=== PATIENT | male | born 1970 | race Caucasian/White ===

== ENCOUNTER 2021-02-10 22:15 | Inpatient (IN) | payer MEDICAID, SELFPAY ==
[~2021-02-10] VITALS: Ht 167.6 cm; Wt 65.8 kg
[2021-02-10 22:15] VITALS: BP 102/72
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
--- NOTE | 2021-02-10 22:17 | NUR ---
Pt BAKARI via gurney to bed 10.
[2021-02-10] MEDS ORDERED: NACL 0.9% 2,000 ML IV ONE (23:20)
--- NOTE | 2021-02-10 23:30 | NUR ---
CJ COLLECTED AND HANDED TO MARCELLO FROM LAB
--- NOTE | 2021-02-10 23:40 | NUR ---
JAMIE VALENTIN AT BEDSIDE FOR CENTRAL LINE PLACEMENT
[2021-02-11] MEDS ORDERED: NALOXONE 0.4 MG/ML VIAL IVP ONE (00:15)
[2021-02-11] MEDS ORDERED: NACL 0.9% 1,000 ML IV ONE (00:15)
[2021-02-11 00:36] LABS: BASOPHILS % (AUTO) 0.1 % (0.0-2.0); HEMATOCRIT 23.1 % (36-52); HEMOGLOBIN 7.6 g/dL (12.0-18.0); LYMPHOCYTES # (AUTO) 1.1 K/uL (2.0-11.5); LYMPHOCYTES % (AUTO) 4.3 % (20.5-51.1); MEAN CORPUSCULAR HEMOGLOBIN 27 pg (27-31); MEAN CORPUSCULAR HGB CONC 33 g/dL (33-37); MEAN CORPUSCULAR VOLUME 82.7 fL (80-94); MONOCYTES # (AUTO) 0.9 K/uL (0.8-1.0); MONOCYTES % (AUTO) 3.4 % (1.7-9.3); NEUTROPHILS # (AUTO) 23.5 K/uL (1.8-7.7); NEUTROPHILS % (AUTO) 92.2 % (42.2-75.2); PLATELET COUNT (AUTO) 509 K/uL (140-450); RED BLOOD CELL COUNT(AUTO) 2.79 MIL/uL (4.20-6.10); RED CELL DISTRIBUTION WIDTH 17.2 % (11.6-13.7)
[2021-02-11 00:43] LABS: WHITE BLOOD COUNT (AUTO) 25.5 K/uL (4.8-10.8)
[2021-02-11 00:52] LABS: ALBUMIN 1.1 g/dL (3.4-5.0); ANION GAP 14.1 (8-16); ASPARTATE AMINOTRANSFERASE 32 U/L (15-37); CARBON DIOXIDE 26.1 mmol/L (21-32); CHLORIDE 84 mmol/L (98-107); GFR ARICAN-AMERICAN 16 mL/min (>90); POTASSIUM 4.2 mmol/L (3.5-5.1); SALICYLATE 3.5 mg/dL (2.8-20.0); SODIUM SERUM 120 mmol/L (136-145); TOTAL BILIRUBIN 2.4 mg/dL (0.0-1.0)
[2021-02-11 00:56] LABS: CREATININE 4.9 mg/dL (0.6-1.3); GLUCOSE 481 mg/dL (74-106); UREA NITROGEN, BLOOD 147 mg/dL (7-18)
--- NOTE | 2021-02-11 01:45 | NUR ---
PER JAMIE VALENTIN, NEW ORDER OF DUARTE CATHETER TO BE INSERTED.
--- NOTE | 2021-02-11 01:48 | NUR ---
PT. TAKEN TO CT VIA MARILUZ
--- NOTE | 2021-02-11 01:59 | NUR ---
PT. BACK FROM CT VIA MARILUZ
--- NOTE | 2021-02-11 02:12 | NUR ---
PT. LAYING IN SEMI FOWLERS POSITION, BREATHING UNLABORED. NO DISTRESS NOTED AT THIS TIME.
--- NOTE | 2021-02-11 02:20 | NUR ---
16 CZECH DUARTE CATHETER INSERTED, PT. TOLERATED WELL. 700CC OF URINE COLLECTED.
[2021-02-11 02:32] LABS: APPEARANCE,URINE CLEAR (CLEAR); BILIRUBIN,URINE 1+ (NEGATIVE); BLOOD, URINE 2+ (NEGATIVE); COLOR,URINE YELLOW (YELLOW); LEUKOCYTE ESTERASE ,URINE NEGATIVE (NEGATIVE); NITRITE, URINE NEGATIVE (NEGATIVE); PH,URINE 5.5 (5.0-9.0); UGLUCOSE 2+ (NEGATIVE)
[2021-02-11 02:35] LABS: RBC,URINE 0-5 /HPF (0-5); URINE AMORPHOUS URATE 1+ /HPF (None Seen)
[2021-02-11 02:47] LABS: ACETAMINOPHEN < 0.5 ug/ml (10-30)
[2021-02-11 02:48] LABS: BARBITURATE, URINE NEGATIVE ng/ml (NEG <=200); BENZODIAZEPINE, URINE NEGATIVE ng/mL (NEG <=200); CANNABINOID, URINE NEGATIVE ng/mL (NEG <=50); COCAINE, URINE NEGATIVE ng/mL (NEG <=300); OPIATE, URINE POSITIVE ng/mL (NEG <=2000); PHENCYCLIDINE SCREEN,URINE POSITIVE ng/mL (NEG <=25)
[2021-02-11] MEDS ORDERED: PIPERACILLIN/TAZOBACTAM 3.375 GM in DEXTROSE 5% 50 ML IV ONE (03:20)
[2021-02-11] MEDS ORDERED: VANCOMYCIN 1,000 MG in DEXTROSE 5% 250 ML IV ONE (03:20)
[2021-02-11] MEDS ORDERED: PIPERACILLIN/TAZOBACTAM 3.375 GM VIAL IV ONE (03:32)
[2021-02-11] MEDS ORDERED: VANCOMYCIN 1,000 MG VIAL ONE (03:34)
--- NOTE | 2021-02-11 04:30 | NUR ---
XRAY AT BEDSIDE
--- NOTE | 2021-02-11 05:46 | NUR ---
PT. IS SEEN IN SUPINE POSITON, VOICES NO COMPLAINTS AT THIS TIME. BREATHING UNLABORED. ABLE TO SPEAK AND OPEN HIS EYES.
[2021-02-11] MEDS ORDERED: NACL 0.9% 1,000 ML IV SCH (07:14)
--- NOTE | 2021-02-11 07:17 | NUR ---
REPORT GIVEN TO ROBERT VILLALBA. TRANSFER OF CARE AT THIS TIME.
--- NOTE | 2021-02-11 07:18 | NUR ---
REPORT RECEIVED FROM CHRISTINA RN, TRANSFER OF CARE AT THIS TIME.
--- NOTE | 2021-02-11 07:20 | NUR ---
PT SITTING IN BED WITH EVEN AND UNLABORED RESPIRATIONS. 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 PT GCS 14, A/O X2- SELF AND TIME. PT UNAWARE OF WHAT HAPPENED OR WHERE HE IS. PT REORIENTED. WILL CONTINUE TO MONITOR
[2021-02-11] MEDS ORDERED: MAG SULF 2000 MG/WATER PREMIX 50 ML IV PRN (07:25)
[2021-02-11] MEDS ORDERED: ACETAMINOPHEN 325 MG TAB PO PRN (07:25)
[2021-02-11] MEDS ORDERED: ONDANSETRON 4 MG/2 ML VIAL IVP PRN (07:25)
[2021-02-11] MEDS ORDERED: LORazepam 2 MG/ML VIAL IM/IVP PRN (07:25)
[2021-02-11] MEDS ORDERED: DOCUSATE SODIUM 100 MG GELCAP PO PRN (07:25)
[2021-02-11] MEDS ORDERED: ZOLPIDEM 5 MG TAB PO PRN (07:25)
[2021-02-11] MEDS ORDERED: HYDROcodone/APAP 5/325 MG 1 TAB TAB PO PRN (07:25)
[2021-02-11] MEDS ORDERED: SODIUM PHOS / POTASSIUM PHOS 1 PKT PDR PO PRN (07:25)
[2021-02-11] MEDS ORDERED: POTASSIUM CHLORIDE 10 MEQ TABER PO PRN (07:25)
[2021-02-11] MEDS ORDERED: MORPHINE SULFATE 2 MG/ML SYR IVP PRN (07:25)
--- NOTE | 2021-02-11 08:13 | NUR ---
PODIATRY AT BEDSIDE
--- NOTE | 2021-02-11 08:13 | NUR ---
GAVE REPORT TO FANNIE JONES FOR ADMISSION TO TELE. AWAITING A BED
[2021-02-11] MEDS ORDERED: DOPPLER MC ONE (08:14)
--- NOTE | 2021-02-11 08:39 | NUR ---
PT REQUESTING TO LEAVE AMA, DR TORRES MADE AWARE
[2021-02-11 09:22] VITALS: BP 119/49
--- NOTE | 2021-02-11 09:22 | NUR ---
Patient will be admitted to care of DR TORRES. Admited to TELEMETRY. Will go to room 110B. Belongings list completed. Report to FANNIE JONES.
--- NOTE | 2021-02-11 09:30 | NUR ---
Admitted from ED AAOX3-4 , with chief complaint of AMS. PT IS 51 y/o ,Male, Appropriate,oriented to call light, bed, phone,television, bathroom, smoking policy,visiting hours, procedures, ID bracelet on. Belongings list checked. With Rt femoral central line and petersen catheter in place. vital signs stable . temp: 97.5, bp: 127/74 mmhg, HR: 112/min, resp: 20/min, with 97% o2 sats on room air.
--- NOTE | 2021-02-11 09:31 | NUR ---
pt also came in with Rt foot wound which was already cleaned and dressed in ED, as per ED-RN, pt was already seen by telemarketer in ED. rt foot dressing clean dry and intact.
[2021-02-11 09:40] LABS: BASOPHILS % (AUTO) 0.1 % (0.0-2.0); HEMATOCRIT 22.4 % (36-52); HEMOGLOBIN 7.4 g/dL (12.0-18.0); LYMPHOCYTES # (AUTO) 1.4 K/uL (2.0-11.5); LYMPHOCYTES % (AUTO) 5.4 % (20.5-51.1); MEAN CORPUSCULAR HEMOGLOBIN 28 pg (27-31); MEAN CORPUSCULAR HGB CONC 33 g/dL (33-37); MEAN CORPUSCULAR VOLUME 83.4 fL (80-94); MONOCYTES # (AUTO) 0.8 K/uL (0.8-1.0); MONOCYTES % (AUTO) 3.2 % (1.7-9.3); NEUTROPHILS # (AUTO) 23.5 K/uL (1.8-7.7); NEUTROPHILS % (AUTO) 91.3 % (42.2-75.2); PLATELET COUNT (AUTO) 451 K/uL (140-450); RED BLOOD CELL COUNT(AUTO) 2.68 MIL/uL (4.20-6.10)
--- NOTE | 2021-02-11 09:40 | NUR ---
pt verbalized he wants to go AMA. Dr. Pearl at the bedside explaining to pt the risks and consequences of leaving against medical advice. but stated he needs to go to his car in a park in [place] where he left it. pt is AAOx4 now. pt asked for 2 bus passes and a pair of crutches.
[2021-02-11 09:53] LABS: ALBUMIN 1.1 g/dL (3.4-5.0); ANION GAP 15.6 (8-16); CARBON DIOXIDE 22.1 mmol/L (21-32); POTASSIUM 3.7 mmol/L (3.5-5.1); TOTAL BILIRUBIN 2.4 mg/dL (0.0-1.0)
[2021-02-11 09:57] LABS: CREATININE 4.1 mg/dL (0.6-1.3)
[2021-02-11 10:08] LABS: WHITE BLOOD COUNT (AUTO) 25.7 K/uL (4.8-10.8)
[2021-02-11 10:10] LABS: PHOSPHORUS 5.7 mg/dL (2.5-4.9)
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
[2021-02-11 10:11] LABS: CHOL/HDL RATIO 14.4 (1-4.5); FREE T4 (FREE THYROXINE) 1.16 ng/dL (0.76-1.46); THYROID STIMULATING HORMONE 0.97 uIU/mL (0.34-3.74)
--- NOTE | 2021-02-11 10:30 | NUR ---
Juanita knockdown worker spoke with pt regarding his leaving AMA. pls see aids social worker's notes.
--- NOTE | 2021-02-11 10:36 | NUR ---
PATIENT HAS BEEN SCREENED AND CATEGORIZED MODERATE NUTRITION RISK. PATIENT WILL BE SEEN WITHIN 3-5 DAYS OF ADMISSION. 02/13/21 02/15/[address]
--- NOTE | 2021-02-11 10:45 | NUR ---
pt was trying to get hold of his mother to pick him up but stated his mother's phone is busy. pt stated he is not changing his mind of leaving AMA because he needs to take care of some "stuff".
--- NOTE | 2021-02-11 10:50 | NUR ---
petersen catheter and central line removed. pressure dressing applied to rt femoral central site. no bleeding noted.
--- NOTE | 2021-02-11 11:10 | NUR ---
pt wheeled outside in stable condition. 2 Bus passes, crutches, shoes, shirt and some food to go provided to pt.
--- NOTE | 2021-02-12 15:29 | NUR ---
RECEIVED RESULTS GRAM + FOR PATIENT FROM SAMUEL IN LAB. SENT COPY TO INFECTION CONTROL.
== END 2021-02-11 11:45 | disposition left against medical advice (07) | DRG 720 ==
LOC: EDBD 22:15 → MED 22:15 → MTU 02-11 04:34
PROVIDERS: ADMIT Family Medicine; ATTEND Family Medicine
PROC: 06HY33Z Insertion of Infusion Device into Lower Vein, Percutaneous Approach (ICD-10-PCS; principal; 2021-02-11)
PROC: B54BZZA Ultrasonography of Right Lower Extremity Veins, Guidance (ICD-10-PCS; 2021-02-11)
DX: A41.9 Sepsis, unspecified organism (principal); J69.0 Pneumonitis due to inhalation of food and vomit; N17.9 Acute kidney failure, unspecified; E11.610 Type 2 diabetes mellitus with diabetic neuropathic arthropathy; D63.8 Anemia in other chronic diseases classified elsewhere; E11.51 Type 2 diabetes mellitus with diabetic peripheral angiopathy without gangrene; I10 Essential (primary) hypertension; M86.8X7 Other osteomyelitis, ankle and foot; E11.69 Type 2 diabetes mellitus with other specified complication; Z20.822 Contact with and (suspected) exposure to COVID-19; Z53.29 Procedure and treatment not carried out because of patient's decision for other reasons; F10.10 Alcohol abuse, uncomplicated; Y90.9 Presence of alcohol in blood, level not specified; Z59.0 Homelessness; Z91.19 Patient's noncompliance with other medical treatment and regimen; N39.0 Urinary tract infection, site not specified
CPT/HCPCS: 36415; 36556; 36600; 70450; 71045; 73630; 80053; 80305; 81001; 82009; 82140; 82150; 82553; 82803; 83036; 83605; 83690; 83880; 84100; 84439; 84443; 84484; 85025; 85610; 85730; 87040; 87086; 93005; 96361; 96365; 96367; 96375; 99291; 99292; G0480; G0482; J0696; J2310; J2543; J3370; J7060; Q0092